=== PATIENT | female | born 1985 | race Hispanic/Latino ===

== ENCOUNTER 2020-11-28 21:22 | Emergency (ER) | payer MEDICAID ==
[~2020-11-28] VITALS: Ht 157.5 cm; Wt 45.4 kg
[~2020-11-28 21:22] MED LIST: ALPR0.255 PO; AMIL5TAB8 PO; DIVA250T4 PO
[2020-11-28 21:25] VITALS: BP 113/80
[2020-11-28 22:06] LABS: BASOPHILS % (AUTO) 0.6 % (0.0-5.0); HEMATOCRIT 28.1 % (36-48); LYMPHOCYTES % (AUTO) 40.1 % (21.0-51.0); MEAN CORPUSCULAR HEMOGLOBIN 24.6 pg (27.0-33.0); MEAN CORPUSCULAR HGB CONC 32.4 g/dL (32.0-36.0); MEAN CORPUSCULAR VOLUME 75.9 fL (79-99); PLATELET COUNT (AUTO) 393 K/uL (130-400); RED CELL DISTRIBUTION WIDTH 18.6 % (11.0-15.5); WHITE BLOOD COUNT (AUTO) 6.5 K/uL (4.8-10.8)
[2020-11-28 22:21] LABS: CREATININE 0.5 mg/dL (0.5-1.5); POTASSIUM 3.3 mmol/L (3.5-5.1)
[2020-11-28 22:26] LABS: ALBUMIN 3.5 g/dL (3.5-5.0); BILIRUBIN,TOTAL 0.4 mg/dL (0.2-1.0); TOTAL PROTEIN, SERUM 7.6 g/dL (6.0-8.3)
[2020-11-28 22:48] LABS: APPEARANCE,URINE Clear (CLEAR); BILIRUBIN,URINE Negative (NEGATIVE); COLOR,URINE Yellow (YELLOW); GLUCOSE, URINE (UA) Negative (NEGATIVE); KETONES,URINE 40 mg/dL (NEGATIVE); LEUKOCYTE ESTERASE ,URINE Trace (NEGATIVE); NITRATE,URINE Negative (NEGATIVE); OCCULT BLOOD,URINE Negative (NEGATIVE); PH,URINE 6.5 (5.0-8.0); PROTEIN,URINE Negative (NEGATIVE)
[2020-11-28 22:57] LABS: AMPHET/METH SCREEN,URINE NEGATIVE (NEGATIVE); BARBITURATE SCREEN, URINE NEGATIVE (NEGATIVE); BENZODIAZEPINES SCREEN,URINE POSITIVE (NEGATIVE); CANNABINOID SCREEN,URINE NEGATIVE (NEGATIVE); COCAINE SCREEN,URINE NEGATIVE (NEGATIVE); OPIATE SCREEN,URINE NEGATIVE (NEGATIVE); PHENCYCLIDINE SCREEN,URINE NEGATIVE (NEGATIVE)
[2020-11-28 23:05] LABS: ALCOHOL, BLOOD 5 mg/dL (0-10)
[2020-11-28 23:07] LABS: ACETAMINOPHEN < 1 mcg/mL (10-30); SALICYLATE < 2.8 mg/dL (2.8-20.0)
[2020-11-28 23:09] LABS: RBC,URINE 0-1 /HPF (0-1)
[2020-11-28 23:10] LABS: BACTERIA,URINE None Seen /HPF (None Seen); SQUAMOUS EPITHELIAL CELL,UR Moderate /HPF (0-2)
[2020-11-28 23:11] LABS: HCG,QUAL RESULT NEGATIVE (NEGATIVE)
[2020-11-29] MEDS ORDERED: CHLORDIAZEPOXIDE HCL 25 MG CAP PO ONE (00:30)
[2020-11-29 01:29] VITALS: BP 118/83
== END 2020-11-29 01:38 | disposition home or self-care (01) ==
LOC: EDH 21:22
DX: F13.239 Sedative, hypnotic or anxiolytic dependence with withdrawal, unspecified (principal); G47.00 Insomnia, unspecified; F41.9 Anxiety disorder, unspecified; Z20.822 Contact with and (suspected) exposure to COVID-19; F31.9 Bipolar disorder, unspecified; Z79.899 Other long term (current) drug therapy
CPT/HCPCS: 36415; 80053; 80305; 81001; 81025; 82550; 85025; 87635; 99283; C9803; G0481

== ENCOUNTER 2024-05-19 15:22 | Emergency (ER) | payer BC, MEDICAID ==
[~2024-05-19] VITALS: Ht 157.5 cm; Wt 45.4 kg
[2024-05-19 15:40] VITALS: BP 137/84; PULSE 108; RESP 20; TEMP 98.4
--- NOTE | 2024-05-19 16:07 | NUR ---
CALLED FOR PT IN LOBBY AND FAST TRACK. NO ANSWER.,
--- NOTE | 2024-05-19 16:15 | NUR ---
CALLED IN LOBBY IN AND FAST TRACK NO ANSWER
== END 2024-05-19 16:31 | disposition left against medical advice (07) ==
LOC: EDH 15:22
DX: R11.0 Nausea (principal); R10.84 Generalized abdominal pain; Z53.21 Procedure and treatment not carried out due to patient leaving prior to being seen by health care provider

== ENCOUNTER 2024-05-19 17:30 | Emergency (ER) | payer BC ==
[~2024-05-19] VITALS: Ht 157.5 cm; Wt 49.9 kg
--- NOTE | 2024-05-19 18:09 | EKG ---
[facility] Test Date: 2024-05-19 Test Time: 18:06:53 Pat Name: YOSELIN BROWN Department: ED Room: Gender: F Clinical Engineer: [id number] : [id number] Requested By: ASHLEY ESTEVEZ Order Number: [id number] Reading MD: Kimo Hudson Measurements Intervals [place] Rate: 102 P: 56 HI: 134 QRS: 81 QRSD: 82 T: 50 QT: 341 QTc: 443 Interpretive Statements Sinus tachycardia Compared to ECG 07/14/2020 15:23:13 Sinus rhythm no longer present Electronically Signed On 05-21-2024 18:34:44 CDT by Kimo Hudson Please click the below link to view image of tracing.
[2024-05-19] MEDS: ondanSETRON 4MG INJ IVP ONE (18:36)
[2024-05-19] MEDS: PANTOPrazole 40 MG/VIAL IVP ONE (18:36)
[2024-05-19] MEDS: 0.9%NACL 1000ML 1,000 ML IV ONE (18:36)
[2024-05-19 18:50] LABS: BASOPHILS # (AUTO) 0.03 K/uL (0.00-0.20); BASOPHILS % (AUTO) 0.2 % (0.0-5.0); HEMATOCRIT 31.9 % (36-48); IMMATURE GRANULOCYTE ABSOLUTE 0.03 K/uL (0-1); LYMPHOCYTES # (AUTO) 2.2 K/uL (1.0-4.8); LYMPHOCYTES % (AUTO) 18.2 % (21.0-51.0); MEAN CORPUSCULAR HEMOGLOBIN 22.1 pg (27.0-33.0); MEAN CORPUSCULAR VOLUME 71.4 fL (79-99); MONOCYTES # (AUTO) 0.8 K/uL (0.1-1.0); MONOCYTES % (AUTO) 6.6 % (3.0-13.0); NEUTROPHILS % (AUTO) 74.8 % (40.0-77.0); PLATELET COUNT (AUTO) 488 K/uL (130-400); RED BLOOD CELL COUNT(AUTO) 4.47 MIL/uL (4.00-5.50); RED CELL DISTRIBUTION WIDTH 18.8 % (11.0-15.5); WHITE BLOOD COUNT (AUTO) 12.1 K/uL (4.8-10.8)
--- NOTE | 2024-05-19 18:50 | ERN ---
ED Note History of Present Illness Stated Complaint: NAUSEA Chief Complaint: Abdominal Pain Time Seen by MD: 17:31 Time Seen by Midlevel: 17:31 Dictation: The patient is a 39-year-old female with a history of bipolar who presents to the emergency department via EMS with complaints of anxiety onset this morning. Patient also reports generalized abdominal pain, nausea nonbloody vomiting. Denies diarrhea, constipation or fevers. Patient denies any alcohol or drug use. Denies any suicidal or homicidal ideations. Allergies: Coded Allergies: diazepam (Verified Allergy, Unknown, 07/15/20) Home Meds Active Scripts Amiloride HCl (Amiloride HCl) 5 Mg Tablet, 5 MG PO DAILY for 30 Days, #30 TAB Prov:SHANIKA NYE Jr., MD 07/20/20 Alprazolam (Alprazolam) 0.25 Mg Tablet, 0.25 MG PO BID for 3 Days, #6 TAB Prov:SHANIKA NYE Jr., MD 07/20/20 Divalproex Sodium (Depakote) 250 Mg Tablet.dr, 250 MG PO Q8H6 for 30 Days, #90 TAB Prov:SHANIKA NYE Jr., MD 07/20/20 Past Medical History Past Medical History: Anxiety, Bipolar Surgical History: None LMP: Apr 27, 2024 RN Note Reviewed/Agreed w/PFSH: Yes Review of System Dictation Constitutional: Negative for fever,chills, and weight loss Eyes: Negative for injury, pain,redness, and discharge ENT: Negative for injury,pain or swelling Cardiovascular: Negative for chest pain, palpitations, and edema Respiratory: Negative for shortness of breath, cough, and wheezing, Abdomen/GI: Negative for , diarrhea, and constipation positive for abdominal pain, nausea, vomiting Back: Negative for injury and pain : Negative for injury, bleeding and discharge MS/Extremity: Negative for injury and deformity Skin: Negative for rash, and discoloration Neuro: Negative for headache, weakness, numbness, tingling, and seizure Psych: Negative for suicide ideation, homicidal ideation, and hallucinations positive for anxiety Initial Vital Sign VS Vital Signs Date Time Temp Pulse Resp B/P (MAP) Pulse Ox O2 Delivery O2 Flow Rate FiO2 05/19/24 17:45 98.8 119 16 160/87 99 Room Air 0 05/19/24 20:14 21 Physical Exam Dictation Vital Signs reviewed General Appearance: Alert, oriented x 3, no acute distress, well developed, nourished. Appears anxious Head and Face: non-traumatic. Eyes: PERRL, pink conjunctivas, eyelid no trauma, anterior chamber with arcus senilis. Ears: Pinnas intact and no signs of trauma or erythema ear canals clear and no discharge TM no erythema Nose: No discharge, no bleeding. Oropharynx: Mouth normal, tongue pink. pharynx clear,no erythema, tonsils no exudates, no abscesses noted, mucous membrane moist Neck: Supple, non-tender, no thyromegaly, no masses, no JVD, no bruits Breast:Deferred Chest:No tenderness, no crepitus, no paradoxical movement, no retractions Lungs:Clear, well-ventilated, symmetric, no rales, no wheezing, no rhonchi, no stridor, good breath sounds bilaterally Heart: Regular rate, regular rhythm, no murmur, no gallops Vascular: no peripheral edema, Abdomen: Soft, positive bowel sounds, nondistended, no guarding, nontender, no rebound, no masses no hepatomegaly, no splenomegaly, no Blair's sign, no hernias. Rectal: Deferred Genital: Deferred Neurological: Normal speech, motor function intact, sensory function intact Musculoskeletal: Neck nontender, full range of motion, back nontender, full range of motion, Extremities: nontender, full range of motion Skin: Color pink, dry, no turgor, no rash, no lacerations, no abrasions, no contusions. Lymphatic: Deferred Results (Laboratory/Radiology) Laboratory/Radiology Laboratory Tests Test 05/19/24 18:33 White Blood Count 12.1 K/uL (4.8-10.8) H Red Blood Count 4.47 MIL/uL (4.00-5.50) Hemoglobin 9.9 g/dL (12.0-16.0) L Hematocrit 31.9 % (36-48) L Mean Corpuscular Volume 71.4 fL (79-99) L Mean Corpuscular Hemoglobin 22.1 pg (27.0-33.0) L Mean Corpuscular Hemoglobin Concent 31.0 g/dL (32.0-36.0) L Red Cell Distribution Width 18.8 % (11.0-15.5) H Platelet Count 488 K/uL (130-400) H Mean Platelet Volume 10.1 fL (7.5-10.5) Immature Granulocyte % (Auto) 0.2 % (0-1) Neutrophils (%) (Auto) 74.8 % (40.0-77.0) Lymphocytes (%) (Auto) 18.2 % (21.0-51.0) L Monocytes (%) (Auto) 6.6 % (3.0-13.0) Eosinophils (%) (Auto) 0.0 % (0.0-8.0) Basophils (%) (Auto) 0.2 % (0.0-5.0) Neutrophils # (Auto) 9.0 K/uL (1.8-7.7) H Lymphocytes # (Auto) 2.2 K/uL (1.0-4.8) Monocytes # (Auto) 0.8 K/uL (0.1-1.0) Eosinophils # (Auto) 0.00 K/uL (0.00-0.70) Basophils # (Auto) 0.03 K/uL (0.00-0.20) Absolute Immature Granulocyte (auto 0.03 K/uL (0-1) Nucleated Red Blood Cells 0.0 % (0.0-0.19) Red Blood Cell Morphology See comments Sodium Level 139 mmol/L (136-145) Potassium Level 3.4 mmol/L (3.5-5.1) L Chloride Level 102 mmol/L (101-111) Carbon Dioxide Level 22 mmol/L (21-32) Blood Urea Nitrogen 18 mg/dL (7-18) Creatinine 1.1 mg/dL (0.5-1.0) H Glomerular Filtration Rate Calc 65 mL/min (>90) Random Glucose 122 mg/dL (70-105) H Total Calcium 9.3 mg/dL (8.5-10.1) Total Bilirubin 0.4 mg/dL (0.2-1.0) Direct Bilirubin 0.1 mg/dL (0.0-0.3) Aspartate Amino Transf (AST/SGOT) 20 U/L (10-37) Alanine Aminotransferase (ALT/SGPT) 20 U/L (12-78) Alkaline Phosphatase 68 U/L (50-136) Total Creatine Kinase 248 U/L (21-232) #H Troponin I High Sensitivity 8.0 ng/L (4-50) Total Protein 9.1 g/dL (6.0-8.3) H Albumin 4.6 g/dL (3.5-5.0) Lipase 40 U/L (16-77) Serum Test, Qualitative NEGATIVE (NEGATIVE) Serum Alcohol < 3 mg/dL (0-10) Labs Reviewed?: Yes EKG: (+) rhythm (Sinus rhythm) EKG Comment: Date:05/19/2024 Time:1806 Ventricular rate:102 MA interval:134 QRS duration:82 QT/QTc:341 EKG interpretation: Sinus tachycardia Reviewed by ED Attending no STEMI ED Course ED Course Orders Procedure Category Date Status Time Cbc With Differential LAB 05/19/24 Complete 17:57 Urinalysis Profile LAB 05/19/24 Logged 17:57 12 Lead Ekg Tracing- EKG 05/19/24 Complete Technical 17:57 0.9%Nacl 1000ml (Ns PHA 05/19/24 Complete 1000ml) 18:00 Ondansetron 4mg Inj PHA 05/19/24 Complete (Zofran 4mg Inj) 18:00 Pantoprazole 40mg Inj PHA 05/19/24 Complete (Protonix 40mg Inj 18:00 Lipase LAB 05/19/24 Complete 17:57 Basic Metabolic Panel LAB 05/19/24 Complete 17:57 Hepatic Function Panel LAB 05/19/24 Complete 17:57 Testing, LAB 05/19/24 Complete Serum Hcg 17:57 Drug Screen Urine LAB 05/19/24 Logged 17:57 Alcohol, Blood LAB 05/19/24 Complete 17:57 Cardiac Panel LAB 05/19/24 Complete 17:57 Current Medications Medications (Trade) Dose Ordered Sig/April Route PRN Reason Start Time Stop Time Status Last Admin Dose Admin Ondansetron HCl (zoFRAN 4MG INJ) 4 mg ONCE ONCE IVP 05/19/24 18:00 05/19/24 18:01 DC 05/19/24 18:36 Pantoprazole Sodium (PROTonix 40MG INJ) 40 mg ONCE ONCE IVP 05/19/24 18:00 05/19/24 18:01 DC 05/19/24 18:36 Sodium Chloride 1,000 ml @ 0 mls/hr ONCE ONCE IV 05/19/24 18:00 05/19/24 18:01 DC 05/19/24 18:36 Vital Signs Date Time Temp Pulse Resp B/P (MAP) Pulse Ox O2 Delivery O2 Flow Rate FiO2 05/19/24 20:14 98.4 98 18 148/83 98 Room Air* 0 21 05/19/24 17:45 98.8 119 16 160/87 99 Room Air 0 Medical Decision Making MDM The patient is a 39-year-old female with a history of bipolar who presents to the emergency department via EMS with complaints of anxiety onset this morning. Patient also reports generalized abdominal pain, nausea nonbloody vomiting. Denies diarrhea, constipation or fevers. Patient denies any alcohol or drug use. Denies any suicidal or homicidal ideations. CBC showed mild leukocytosis, patient with no fevers or obvious signs of infection. We will be related., mild normocytic anemia, chemistry showed mild hypokalemia, slightly elevated CK level. Patient received a L of fluids in ER. GFR of 65. Patient's alcohol level was negative. Patient refused to give urinalysis sample. Patient with a nontender abdomen. Denies any drug use. Stable vital signs. Patient's tachycardia improved. Patient will be discharged to follow up with primary doctor. Differential diagnosis: Anxiety, drug abuse, alcohol intoxication, dehydration, gastroenteritis Need for hospitalization: Patient does not meet criteria for hospitalization. There are no social concerns with this patient. DX & DISP Disposition: Discharge Departure Impression: Primary Impression: Anxiety Condition: Stable Additional Instructions: FOLLOW-UP WITH PRIMARY CARE PROVIDER IN 1 TO 2 DAYS. TAKE MEDICATIONS DIRECTED HERE IN THE EMERGENCY ROOM. OKAY TO CONTINUE HOME MEDICATIONS UNLESS OTHERWISE DISCUSSED DURING YOUR VISIT IN THE EMERGENCY ROOM TODAY. RETURN TO YOUR NEAREST EMERGENCY ROOM IF SYMPTOMS WORSEN OR IF THERE IS NO IMPROVEMENT. CALL 911 IF YOU NEED IMMEDIATE ASSISTANCE. TAKE TYLENOL OR MOTRIN [id number] NEEDED AND IF NO CONTRAINDICATIONS ARE PRESENT. INCREASE ORAL HYDRATION. A WOUND CULTURE OR URINE CULTURE WAS ORDERED HERE IN THE EMERGENCY ROOM DEPARTMENT PLEASE FOLLOW-UP WITH PRIMARY CARE PROVIDER AND ADVISE THEM TO GET REPEAT PORTS FROM OUR FACILITY. IF YOU HAD ANY VAMSI WRAP/SPLINTS THAT WERE APPLIED HERE, PLEASE DO NOT REMOVE THEM UNTIL YOU SEE YOUR PRIMARY CARE OR SPECIALTY. Referrals: DHEERAJ CASTRO MD (PCP) Time of Disposition: 20:09 I have reviewed the case, and I agree with, Diagnosis and Plan ASHLEY ESTEVEZ [facility] May 19, 2024 18:50
[2024-05-19 18:51] LABS: CARBON DIOXIDE 22 mmol/L (21-32); CHLORIDE 102 mmol/L (101-111); CREATININE 1.1 mg/dL (0.5-1.0); GLOMERULAR FILTR. RATE CALC 65 mL/min (>90); GLUCOSE,RANDOM 122 mg/dL (70-105); POTASSIUM 3.4 mmol/L (3.5-5.1); SODIUM SERUM 139 mmol/L (136-145); UREA NITROGEN, BLOOD 18 mg/dL (7-18)
[2024-05-19 19:00] LABS: ALANINE AMINOTRANSFERASE 20 U/L (12-78); ALBUMIN 4.6 g/dL (3.5-5.0); ALCOHOL, BLOOD < 3 mg/dL (0-10); ASPARTATE AMINOTRANSFERASE 20 U/L (10-37); BILIRUBIN,DIRECT 0.1 mg/dL (0.0-0.3); BILIRUBIN,TOTAL 0.4 mg/dL (0.2-1.0); CREATINE KINASE, TOTAL 248 U/L (21-232); TOTAL PROTEIN, SERUM 9.1 g/dL (6.0-8.3)
[2024-05-19 20:14] VITALS: BP 148/83; PULSE 98; RESP 18; TEMP 98.5; O2SAT 98
== END 2024-05-19 20:18 | disposition home or self-care (01) ==
LOC: EDH 17:30
DX: F41.9 Anxiety disorder, unspecified (principal); F31.9 Bipolar disorder, unspecified; Z79.899 Other long term (current) drug therapy
CPT/HCPCS: 99284; 96374; 96361; 96375; 82550; 80076; 84484; 80048; 84703; 83690; 85025; 36415; 93005; J7030; J2405; J2470